=== PATIENT | female | born 1985 | race Caucasian/White ===

== ENCOUNTER 2024-07-01 12:11 | Emergency (ER) | payer OTHER ==
[~2024-07-01] VITALS: Ht 162.6 cm; Wt 63.5 kg
[2024-07-01] MEDS ORDERED: OLANZapine ODT 5 MG Tab MM ONE (12:50)
[2024-07-01] MEDS ORDERED: CLOBETASOL EMOL15 G1 (13:44)
[2024-07-01] MEDS ORDERED: CICLODAN90 GM TP (13:44)
[2024-07-01] MEDS ORDERED: NICO21TP TOP ×2 (13:45)
[2024-07-01] MEDS ORDERED: GABA100 (13:45)
[2024-07-01] MEDS ORDERED: AMPDEX30CR ×2 (13:46)
[2024-07-01] MEDS ORDERED: AMPDEX5 PO ×2 (13:46)
[2024-07-01] MEDS ORDERED: MUPIROCIN1 G1 TOP (13:46)
[2024-07-01] MEDS ORDERED: TERBINAFINE HC250 MG PO ×2 (13:46)
[2024-07-01] MEDS ORDERED: VENL75ER PO ×2 (13:46)
[2024-07-01] MEDS ORDERED: HYDHCL25 (13:47)
[2024-07-01] MEDS ORDERED: THERA-D2000 UNIT PO (13:47)
[2024-07-01] MEDS ORDERED: METO25ER (13:47)
[2024-07-01 13:51] LABS: BASOPHILS ABSOLUTE AUTO 0.02 K/mm3 (0.00-0.23); BASOPHILS PERCENT AUTO 0 % (0-2); EOSINOPHILS ABSOLUTE AUTO 0.15 K/mm3 (0.00-0.68); EOSINOPHILS PERCENT AUTO 3 % (0-6); Hematocrit 39.3 % (33.0-51.0); Hemoglobin 13.7 g/dL (11.5-16.0); IMMATURE GRAN ABSOLUTE AUTO 0.01 K/mm3 (0.00-0.10); IMMATURE GRAN PERCENT AUTO 0 % (0-1); LYMPHOCYTES ABSOLUTE AUTO 1.78 K/mm3 (0.84-5.20); LYMPHOCYTES PERCENT AUTO 30 % (21-46); MONOCYTES ABSOLUTE AUTO 0.51 K/mm3 (0.16-1.47); MONOCYTES PERCENT AUTO 9 % (4-13); Mean Corpuscular HGB 31.2 pg (26.0-34.0); Mean Corpuscular HGB Conc 34.9 g/dL (31.5-36.5); Mean Corpuscular Volume 90 fL (80-100); Mean Platelet Volume 9.8 fL (9.1-12.4); NEUTROPHILS ABSOLUTE AUTO 3.44 K/mm3 (1.96-9.15); NEUTROPHILS PERCENT AUTO 58 % (41-73); Platelet Count 204 K/mm3 (150-400); RDW Coefficient Variation 12.3 % (11.7-14.2); RDW Standard Deviation 40.7 fL (35.1-46.3); Red Blood Cell Count 4.39 M/mm3 (3.80-5.20); White Blood Cell Count 5.91 K/mm3 (4.00-11.30)
[2024-07-01 14:18] LABS: Salicylate <1.7 mg/dL (2.8-20.0)
[2024-07-01 14:25] LABS: Acetaminophen, Random <2.0 ug/mL (10.0-30.0)
[2024-07-01 18:06] VITALS: BP 125/97
[2024-07-02] MEDS ORDERED: CAPSAICIN60 G1 TOP ×2 (08:46)
== END 2024-07-01 18:11 | disposition other institution (70) ==
LOC: ER 12:11
PROVIDERS: Student in an Organized Health Care Education/Training Program
DX: R45.851 Suicidal ideations (principal); F41.8 Other specified anxiety disorders; F17.210 Nicotine dependence, cigarettes, uncomplicated; F43.10 Post-traumatic stress disorder, unspecified; Z79.899 Other long term (current) drug therapy
CPT/HCPCS: 85025; 93005; 93010; 99285-25; A9270; G0480

== ENCOUNTER 2024-07-01 14:15 | Inpatient (IN) | payer OTHER ==
[~2024-07-01 14:15] MED LIST: AMPDEX30CR; AMPDEX5 PO; CICLODAN90 GM TP; CLOBETASOL EMOL15 G1; GABA100; HYDHCL25; METO25ER; MUPIROCIN1 G1 TOP; NICO21TP TOP; TERBINAFINE HC250 MG PO; THERA-D2000 UNIT PO; VENL75ER PO
[2024-07-01] MEDS ORDERED: FLU VACC TS2024-25(6MOS UP)/PF 45 MCG/0.5 ML SYRINGE IM ONE (17:40)
[2024-07-01] MEDS ORDERED: Ibuprofen 600 MG Tab PO PRN (17:40)
[2024-07-01] MEDS ORDERED: Aluminum Hydroxide 320MG/5ML 473 ML PO PRN (17:40)
[2024-07-01] MEDS ORDERED: Zolpidem Tartrate 5 MG Tab PO PRN (17:45)
[2024-07-01] MEDS ORDERED: Melatonin 3 MG Tab PO PRN (17:45)
[2024-07-01] MEDS ORDERED: Acetaminophen 325 MG TABLET PO PRN (17:45)
--- NOTE | 2024-07-01 18:00 | NUR ---
ADMIT INITIAL SKIN ASSESSMENT PT ADMITTED FOR SI FROM ED. PT VERY PLEASANT AND COOPERATIVE DURING ADMIT AND SKIN ASSESSMENT. NO VISIBLE OPEN AREAS TO SKIN, DRYNESS TO BOTTOMS OF FEET, AND REPORTS FUNGAL CREAMS FOR TOES. INFORMED PT TO HAVE IT BROUGHT IN FOR PROVIDER APPROVAL. REPORT GIVEN TO ONCOMING SHIFT TO COMPLETE INTAKE.
--- NOTE | 2024-07-01 18:39 | NUR ---
PATIENT BELONGINGS STORED AND PAPERWORK FILED
--- NOTE | 2024-07-02 04:04 | NUR ---
PATIENT WAS ADMITTED JUST BEFORE GUIDE DOG TRAINER, BUT ADMISSION PAPERWORK DONE BY THIS RN. ADMISSION TIME 1800. PATIENT STATES THAT SHE IS "DEPRESSED AND I HAVE SUICIDAL IDEATION WITH PLANS" BUT ADMITS "MY PLAN ISN'T WORKABLE HERE" ON THE UNIT. AFTER ADMISSION ASSESSMENT, PATIENT WAS IN GROUP ROOM COLORING, THEN WENT TO HAVE A SNACK. SHE THEN HAD EVENING MEDICATIONS AND WENT TO BED, WHERE SHE WAS NOTED TO BE RESTING QUIETLY WITH EYES CLOSED AND RESPIRATIONS CONFIRMED. SHE HAD NO S/SX OF SUICIDAL IDEATION DURING THIS SHIFT, NOR ANY SELF HARM NOTED. CONTINUING TO MONITOR WITH Q15 MINUTE CHECKS.
[2024-07-02 08:24] VITALS: BP 119/86
[2024-07-02] MEDS ORDERED: CAPSAICIN60 G1 TOP ×2 (08:46)
[2024-07-02] MEDS ORDERED: Multivitamins 1 Tab PO SCH (09:00)
[2024-07-02] MEDS ORDERED: Thiamine HCl 100 MG Tab PO SCH (09:00)
[2024-07-02] MEDS ORDERED: Folic Acid 1 MG TAB PO SCH (09:00)
--- NOTE | 2024-07-02 09:00 | NUR ---
PT ALERT, ORIENTED AND COOPERATIVE. DISCUSSED DAILY MEDICATIONS AND CONFIRMED DOSAGES. PROVIDER NOTIFIED AND NEW ORDERS OBTAINED.
[2024-07-02] MEDS ORDERED: Terbinafine 250 MG Tab PO SCH (09:05)
[2024-07-02] MEDS ORDERED: Venlafaxine HCl 75 MG CapCR PO SCH ×2 (09:05→11:00)
[2024-07-02] MEDS ORDERED: Capsaicin 0.025% Cream TOP PRN (09:05)
[2024-07-02] MEDS ORDERED: Nicotine 21 MG PATCH TOP SCH (09:10)
--- NOTE | 2024-07-02 09:57 | NUR ---
PT RESTING IN SENSORY ROOM. APPEARS TO BE SLEEPING. WILL PROVIDE AM MEDS WHEN SHE WAKES UP.
--- NOTE | 2024-07-02 17:50 | NUR ---
PT ALERT, ORIENTED AND COOPERATIVE WITH CARE. COMPLIANT WITH MEDICATIONS. DAILY MEDICATIONS ORDERED AND PROVIDED TO PT. PT RESTED IN SENSORY ROOM OFF AND ON THROUGH OUT THE DAY. SHE DENIED SI, HI OR AVH.
[2024-07-02 20:26] VITALS: BP 123/81
[2024-07-02] MEDS ORDERED: QUEtiapine Fumarate 100 MG Tab PO SCH (21:00)
--- NOTE | 2024-07-03 05:19 | NUR ---
Patient is alert and oriented times 4. pleasant and cooperative with care. When asked about suicidal ideation, Patient stated she did not feel suicidal, however, she was still intermittantly struggling. She did state thata she felt much better after having some good sleep and eating a normal amount of food. Patient had pain across neck and bilat shoulder blades. This was relieved by Capsacin ointment. Sleep hours to this time 8 hours. will continue close monoitoring
[2024-07-03] MEDS ORDERED: Venlafaxine HCl 75 MG CapCR PO SCH (09:00)
--- NOTE | 2024-07-03 17:42 | NUR ---
SHIFT SUMMARY: PT ALERT, ORIENTED AND COOPERATIVE. DENIES SI, HI AND AVH. PT SLEPT OFF AND ON THROUGH OUT THE DAY. PT HAD A VISITOR THIS EVENING, THE VISIT APPEARED TO GO WELL.
--- NOTE | 2024-07-04 03:41 | NUR ---
Patient is alert and oriented X4 and pleasant and cooperative with her peers as well as staff. She denies SI,HI or AVH on assessment. She is hoping she will be able to continue on this path upon discharge and not experience the same thoughts she had prior to her admission. Melissa does admit that her thoughts have become much more positive since being able to get a good night's sleep and has regained her appetite which she had lost for approximately 2 weeks prior to admission. Sleep time to this point 7 hours. will continue close monitoring
[2024-07-04 08:20] VITALS: BP 127/85
--- NOTE | 2024-07-04 15:26 | NUR ---
Pt Discharge Appointment Info Pt requested her follow up care be at [facility]. I have had pt sign a JEVON for us to speak and release records to them. JEVON was sent over to there office via fax and added to her chart and an appointment request has been entered per SW & Pt request. Will recieve call back with an appointment from Ria Rodriguez [employer] D[employer] Driver.
--- NOTE | 2024-07-04 17:14 | NUR ---
SHIFT SUMMARY: PT ALERT, ORIENTED AND COOPERATIVE WITH CARE. DENIES HI, SI AND AVH. SHE PARTICIPATED IN GROUP AND DEPT MILIEU. COMPLIANT WITH MEDICATIONS.
[2024-07-04 20:32] VITALS: BP 132/90
--- NOTE | 2024-07-05 04:31 | NUR ---
Patient is A&OX3, pleasant and cooperative with care. No SI,HI or AVH noted on assessment. Participating in activities with peers and writing in journal prior to HS. Nicotine patch taken off early to try to prevent the nightmares she experienced yesterday AN. will continue close monitoring
[2024-07-05 08:14] VITALS: BP 117/72
--- NOTE | 2024-07-05 10:57 | NUR ---
PT ALERT, ORIENTED AND COOPERATIVE. COMPLIANT WITH CARE AND MEDICATIONS. DENIES SI, HI AND AVH. DISCUSSED DISCHARGE PLAN WITH PT, SHE VERBALIZED FEELING COMFORTABLE GOING HOME.
[2024-07-05] MEDS ORDERED: QUET100 PO ×2 (11:41)
--- NOTE | 2024-07-05 14:05 | NUR ---
DISCHARGE NOTE: PT DISCHARGED HOME. STATES UUNDERSTANDING OF DISCHARGE INSTRUCTIONS AND DENIED QUESTIONS. BELONGINGS RETURNED BY JAYCEE, MHA. PT DENIED SI, HI AND AVH. AMBULATED OUT OF DEPT WITHOUT DIFFICULTY. DISCHARGE INSTRUCTIONS AND BELONGINGS IN HAND.
== END 2024-07-05 14:05 | disposition home or self-care (01) | DRG 885 ==
LOC: BHU 14:15
PROVIDERS: ADMIT Student in an Organized Health Care Education/Training Program
DX: F33.2 Major depressive disorder, recurrent severe without psychotic features (principal); R45.851 Suicidal ideations; Z79.899 Other long term (current) drug therapy; F90.9 Attention-deficit hyperactivity disorder, unspecified type; F43.23 Adjustment disorder with mixed anxiety and depressed mood
CPT/HCPCS: A9270